=== PATIENT | male | born 1955 | race African-American/Black ===

== ENCOUNTER 2017-02-10 07:43 | Emergency (ER) | payer OTHER ==
[~2017-02-10] VITALS: Ht 177.8 cm; Wt 67.1 kg
[2017-02-10 12:32] VITALS: BP 141/81
== END 2017-02-10 13:37 ==
LOC: EME 07:43
DX: K94.23 Gastrostomy malfunction (principal); Z93.0 Tracheostomy status; I69.359 Hemiplegia and hemiparesis following cerebral infarction affecting unspecified side; Z87.891 Personal history of nicotine dependence; J96.10 Chronic respiratory failure, unspecified whether with hypoxia or hypercapnia
CPT/HCPCS: 74000; 94799; 99281; 99284

== ENCOUNTER → 2017-02-13 | Outpatient (CLI) | payer OTHER | LOC: RAD 14:08 | PROC: 0DH67UZ Insertion of Feeding Device into Stomach, Via Natural or Artificial Opening (ICD-10-PCS; principal; 2017-02-13) | DX: K94.20 Gastrostomy complication, unspecified (principal) | CPT/HCPCS: 49440; B4087 ==